=== PATIENT | male | born 1985 | race Caucasian/White ===

== ENCOUNTER 2021-01-28 18:41 | Emergency (ER) | payer SELFPAY ==
[~2021-01-28] VITALS: Ht 185.4 cm; Wt 86.2 kg
[2021-01-28 18:43] VITALS: BP 129/75
[2021-01-28 19:55] LABS: ABG HCO3 22.3 mmol/L (21.0-28.0); ABG OXYGEN SATURATION 93.5 % (95.0-99.0); ABG PCO2 33 mmHg (35-48)
[2021-01-28 19:57] LABS: BASOPHILS % (AUTO) 0.2 % (0.0-5.0); EOSINOPHILS % (AUTO) 0.2 % (0.0-8.0); HEMATOCRIT 44.1 % (42-54); LYMPHOCYTES % (AUTO) 24.5 % (21.0-51.0); MEAN CORPUSCULAR HEMOGLOBIN 31.8 pg (27.0-33.0); MEAN CORPUSCULAR HGB CONC 34.5 g/dL (32.0-36.0); MEAN CORPUSCULAR VOLUME 92.3 fL (79-99); MONOCYTES % (AUTO) 6.6 % (3.0-13.0); NEUTROPHILS % (AUTO) 68.3 % (40.0-77.0); PLATELET COUNT (AUTO) 161 K/uL (130-400); RED BLOOD CELL COUNT(AUTO) 4.78 MIL/uL (4.50-6.20); RED CELL DISTRIBUTION WIDTH 11.8 % (11.0-15.5); WHITE BLOOD COUNT (AUTO) 4.7 K/uL (4.8-10.8)
[2021-01-28] MEDS ORDERED: ACETAMINOPHEN 500 MG TABLET PO ONE (20:00)
[2021-01-28 20:14] LABS: CREATININE 1.2 mg/dL (0.5-1.5); POTASSIUM 3.6 mmol/L (3.5-5.1)
[2021-01-28 20:16] LABS: INR 0.97 (0.85-1.15); PROTHROMBIN TIME 10.6 SEC (9.6-11.6)
[2021-01-28 20:17] VITALS: BP 103/60
[2021-01-28 20:18] LABS: B-TYPE NATRIURETIC PEPTIDE < 5 pg/mL (0-100)
[2021-01-28 20:19] LABS: ALBUMIN 3.9 g/dL (3.5-5.0); BILIRUBIN,TOTAL 0.8 mg/dL (0.2-1.0); TOTAL PROTEIN, SERUM 7.7 g/dL (6.0-8.3)
[2021-01-28] MEDS ORDERED: ALBUTEROL INHALER 90MCG/INH IH ONE ×2 (20:30→22:53)
[2021-01-28] MEDS ORDERED: CEFTRIAXONE 1G VIAL IVP ONE (21:00)
[2021-01-28] MEDS ORDERED: AZITHROMYCIN 500MG VIAL IVPB ONE (21:00)
[2021-01-28] MEDS ORDERED: AZITHROMYCIN 500MG+NS 250ML 250 ML IV ONE (21:00)
[2021-01-28] MEDS ORDERED: 0.9% NACL 250ML IVPB ONE (21:00)
[2021-01-28] MEDS ORDERED: IOHEXOL 350 MG/ML 100ML INFUS..BTL IV ONE (22:28)
[2021-01-28] MEDS ORDERED: CEFTRIAXONE 1G VIAL ONE (22:53)
[2021-01-28 23:06] VITALS: BP 108/62
[2021-01-28] MEDS ORDERED: DiphenhydrAMINE HCL 50 MG/ML VIAL ONE (23:19)
[2021-01-28] MEDS ORDERED: DiphenhydrAMINE HCL 50 MG/ML VIAL IV ONE (23:30)
[2021-01-29] MEDS ORDERED: ALBU8.5H8 IH (00:43)
[2021-01-29] MEDS ORDERED: AZIT250T9 PO (00:43)
[2021-01-29] MEDS ORDERED: BENZ-17 PO (00:43)
[2021-01-29] MEDS ORDERED: PRED20TA3 PO (00:43)
== END 2021-01-29 01:29 | disposition home or self-care (01) ==
LOC: EDH 18:41
DX: U07.1 COVID-19 (principal); J12.82 Pneumonia due to coronavirus disease 2019; Z88.0 Allergy status to penicillin; Z79.899 Other long term (current) drug therapy; Z79.52 Long term (current) use of systemic steroids
CPT/HCPCS: 36415; 36600; 71045; 71275; 80053; 82550; 82803; 83605; 83880; 84484; 85025; 85610; 87040; 87635; 87804; 87880; 93005; 96365; 96375; C9803; J0456; J0696; J1200; Q9967